=== PATIENT | male | born 1995 | race Caucasian/White ===

== ENCOUNTER 2018-04-20 09:46 | Emergency (ER) | payer OTHER ==
[2018-04-20 10:25] LABS: ADD MAN DIFF? NO
[2018-04-20 10:30] LABS: BASO % 1 % (0-3); EOS # 0.2 x10^3/uL (0.0-0.7); EOS % 2 % (0-3); HEMOGLOBIN 14.8 g/dL (13.0-17.5); LYMPH # 1.7 x10^3/uL (1.0-4.8); LYMPH % 25 % (24-48); MEAN CORPUSCULAR HEMOGLOBIN 32 pg (25-35); MEAN CORPUSCULAR HGB CONC 35 g/dL (31-37); MEAN CORPUSCULAR VOLUME 91 fL (79-100); MONO # 0.4 x10^3/uL (0.0-1.1); MONO % 6 % (0-9); NEUT # 4.5 x10^3uL (1.8-7.7); NEUT % 66 % (31-73); PLATELET COUNT 204 x10^3/uL (140-400); RED CELL DISTRIBUTION WIDTH 12.7 % (11.5-14.5); WHITE BLOOD COUNT 6.9 x10^3/uL (4.0-11.0)
[2018-04-20] MEDS: IV NORMAL SALINE 1000ML BAG 1,000 ML IV (10:30)
[2018-04-20 10:45] LABS: BILIRUBIN,URINE NEGATIVE (NEG); CLARITY,URINE CLEAR; COLOR,URINE YELLOW; GLUCOSE,URINE NEGATIVE (NEG); NITRITE,URINE NEGATIVE (NEG); PROTEIN,URINE NEGATIVE (NEG-TRACE); UROBILINOGEN,URINE 0.2 mg/dL (0.2 mg/dL)
[2018-04-20 10:49] LABS: ETHANOL 128 mg/dL (0-10)
[2018-04-20 10:50] LABS: ANION GAP 10 (6-14); BLOOD UREA NITROGEN 15 mg/dL (8-26); BUN/CREATININE RATIO 15 (6-20); CALCIUM 8.6 mg/dL (8.5-10.1); CARBON DIOXIDE 27 mmol/L (21-32); CHLORIDE 103 mmol/L (98-107); GFR 91.8; GLUCOSE 98 mg/dL (70-99); POTASSIUM 3.9 mmol/L (3.5-5.1); SODIUM 140 mmol/L (136-145)
[2018-04-20 10:52] LABS: ALBUMIN 4.3 g/dL (3.4-5.0); ALBUMIN/GLOBULIN RATIO 1.3 (1.0-1.7); ALK PHOS 59 U/L (46-116); ALT (SGPT) 29 U/L (16-63); AST (SGOT) 25 U/L (15-37); TOTAL BILIRUBIN 1.2 mg/dL (0.2-1.0); TOTAL PROTEIN 7.5 g/dL (6.4-8.2)
[2018-04-20 10:53] LABS: BARBITURATES NEG (NEG); BENZODIAZEPINES NEG (NEG); CANNABINOIDS NEG (NEG); COCAINE NEG (NEG); METHADONE NEG (NEG); OPIATES NEG (NEG); PHENCYCLIDINE NEG (NEG)
[2018-04-20 10:56] LABS: BACTERIA,URINE 0 /HPF (0-FEW); RBC,URINE 0 /HPF (0-2); WBC,URINE RARE /HPF (0-4)
[2018-04-20 10:59] LABS: AMPHETAMINE/METHAMPHETAMINE NEG (NEG); ETHANOL, URINE POS (NEG)
== END 2018-04-20 11:38 | disposition home or self-care (01) ==
LOC: ER 09:46
DX: F10.129 Alcohol abuse with intoxication, unspecified (principal); I69.911 Memory deficit following unspecified cerebrovascular disease; Z87.891 Personal history of nicotine dependence
CPT/HCPCS: 36415; 80053; 80307; 81001; 85025; 96360; 99284-25; G0480; J7030